=== PATIENT | female | born 1975 | race Caucasian/White ===

== ENCOUNTER 2020-12-03 23:35 | Emergency (ER) | payer BC ==
[2020-12-03 23:57] VITALS: O2SAT 99
--- NOTE | 2020-12-04 00:34 | ERPHSYRPT ---
- History of Present Illness Time Seen by Provider: 12/03/20 23:55 Source: patient Exam Limitations: no limitations Patient Subjective Stated Complaint: Patient states, I woke up on the floor of my house to a bat biting my toe. I had to pull it off. Triage Nursing Assessment: Bandaid removed from left foot great toe. 2 small punctures noted to bottom or left foot great toe. No drainage or bleeding from area. No redness or swelling around punctures at this time. Patient able to wiggle toe and denies pain at this time. Physician History: She was asleep in her home with her feet under the covers when she awoke to find a bat biting her great left toe. On the undersurface. She did manage to pull it off the bat is but is in her wastebasket at home and we have instructed her to get it on ice and take it to the health department tomorrow. The meantime we will start rabies prophylaxis Timing/Duration: today Severity: mild Modifying Factors: Improves With: nothing Associated Symptoms: denies symptoms Allergies/Adverse Reactions: No Known Drug Allergies Allergy (Unverified 12/03/20 23:57) Home Medications: Amiodarone HCl 200 mg PO DAILY 12/03/20 [History] Amlodipine Besylate 5 mg [Norvasc 5 mg] 5 mg PO DAILY 12/03/20 [History] Levothyroxine Sodium 75 Mcg [Synthroid 75 Mcg] 75 mcg PO DAILY 12/03/20 [History] Sacubitril/Valsartan [Entresto 97 mg-103 mg Tablet] 1 tab PO BID 12/03/20 [History] Hx Tetanus, Diphtheria Vaccination/Date Given: Yes Hx Influenza Vaccination/Date Given: No Hx Pneumococcal Vaccination/Date Given: No Immunizations Up to Date: Yes Travel Risk - International Travel Have you traveled outside of the country in past 3 weeks: No - Coronavirus Screening Are you exhibiting any of the following symptoms?: No Close contact with a COVID-19 positive Pt in past 14-21 Days: No - Vaccine Status Have you recieved a Covid-19 vaccination: Yes In Service Coordinator: Moderna - Vaccination Dates Date of 2cond Vaccination (if applicable): August 2020 - Review of Systems Constitutional: No Fever, No Chills Eyes: No Symptoms Ears, Nose, & Throat: No Symptoms Respiratory: No Cough, No Dyspnea Cardiac: No Chest Pain, No Edema, No Syncope Abdominal/Gastrointestinal: No Abdominal Pain, No Nausea, No Vomiting, No Diarrhea Genitourinary Symptoms: No Dysuria Musculoskeletal: No Back Pain, No Neck Pain Skin: No Rash Neurological: No Dizziness, No Focal Weakness, No Sensory Changes Psychological: No Symptoms Endocrine: No Symptoms All Other Systems: Reviewed and Negative - Past Medical History Pertinent Past Medical History: Yes Neurological History: No Pertinent History ENT History: No Pertinent History Cardiac History: Hypertension Respiratory History: No Pertinent History Endocrine Medical History: Hypothyroidism Musculoskeletal History: No Pertinent History GI Medical History: No Pertinent History History: No Pertinent History Psycho-Social History: No Pertinent History Female Reproductive Disorders: No Pertinent History Other Medical History: Irregular heart rate per patient - Past Surgical History Past Surgical History: Yes Neuro Surgical History: No Pertinent History Cardiac: No Pertinent History Respiratory: No Pertinent History Gastrointestinal: Cholecystectomy Genitourinary: No Pertinent History Musculoskeletal: No Pertinent History Female Surgical History: Section - Social History Smoking Status: Never smoker Exposure to second hand smoke: No Drug Use: none Patient Lives Alone: No - Female History Hx Last Menstrual Period: NOW Hx Now: No - Nursing Vital Signs Nursing Vital Signs: Initial Vital Signs Temperature 97.6 F 12/03/20 23:49 Pulse Rate 83 12/03/20 23:49 Respiratory Rate 20 12/03/20 23:49 Blood Pressure 152/95 12/03/20 23:49 O2 Sat by Pulse Oximetry 99 12/03/20 23:49 - Physical Exam General Appearance: mild distress Eye Exam: PERRL/EOMI, eyes nml inspection Ears, Nose, Throat Exam: normal ENT inspection, TMs normal, pharynx normal, moist mucous membranes Neck Exam: normal inspection, non-tender, supple, full range of motion Respiratory Exam: airway intact, No respiratory distress Cardiovascular Exam: regular rate/rhythm, normal peripheral pulses Gastrointestinal/Abdomen Exam: soft, No distention Back Exam: normal inspection, normal range of motion Extremity Exam: other (Small puncture wound on the plantar surface of the great left toe) Neurologic Exam: alert, oriented x 3, cooperative Skin Exam: other (Bat bite to the left great toe) SpO2 Interpretation: normal SpO2: 99 O2 Delivery: Room Air - Course Nursing assessment & vital signs reviewed: Yes Ordered Tests: Medication Summary Discontinued Medications Generic Name Dose Route Start Last Admin Trade Name Freq PRN Reason Stop Dose Admin Rabies Immune Globulin 2,500 units 12/04/20 00:41 Hyperrab 300 Unit/Ml 5 Ml Vial IM 12/04/20 00:42 ONCE STA Rabies Vaccine Human Diploid Cell 2.5 unit 12/04/20 00:38 Imovax Rabies Vaccine 2.5 Units IM 12/04/20 00:39 .ONCE ONE - Progress Progress: unchanged - Departure Departure Disposition: Home Clinical Impression: Bat bite wound Condition: Stable Critical Care Time: No Referrals: DOCTOR,NO FAMILY [Primary Care Provider] - Instructions: Animal Bites (DC)
[2020-12-04] MEDS ORDERED: IMOVAX RABIES VACCINE 2.5 UNITS IM ONE (00:38)
[2020-12-04] MEDS ORDERED: HYPERRAB 300 UNIT/ML 5 ML VIAL IM STA (00:41)
[2020-12-04 02:14] VITALS: BP 138/82; PULSE 90
[2020-12-05] MEDS ORDERED: HYPERRAB 300 UNIT/ML 5 ML VIAL IM ONE ×2 (10:30)
== END 2020-12-04 02:17 | disposition home or self-care (01) ==
LOC: ED 23:35
DX: S91.152A Open bite of left great toe without damage to nail, initial encounter (principal); S91.132A Puncture wound without foreign body of left great toe without damage to nail, initial encounter; W64.XXXA Exposure to other animate mechanical forces, initial encounter; Y93.9 Activity, unspecified; Y92.9 Unspecified place or not applicable
CPT/HCPCS: 90375; 90471; 90675; 96372; 99283